=== PATIENT | female | born 1980 | race Caucasian/White ===

== ENCOUNTER 2018-06-24 18:15 | Emergency (ER) | payer SELFPAY ==
--- NOTE | 2018-06-24 19:08 | EDM.PDOC ---
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 No cramping. Blood type is RH +. Per her home preg test she should be about 5 weeks gestation. Has some pain in the area of her L ovary. No hx of ectopic preg. 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: Other (see below) (none) Left Pelvic Pain Score (Numeric/FACES): 2 - Related Data Allergies Allergy/AdvReac Type Severity Reaction Status Date / Time Penicillins Allergy Hives Verified 06/24/18 18:36 Home Meds: Home Meds Vit37/Iron/Folic Acid [Prenata] 1 tab PO DAILY 06/24/18 [History] Past Medical History 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: , 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 RESOURCE 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 History: G-8 P-5 Neurological History: Reports: Migraines - Past Surgical History GI Surgical History: Reports: Appendectomy Social & Family History - Tobacco Use Smoking Status *Q: Never Smoker - Caffeine Use Caffeine Use: Reports: None - Recreational Drug Use Recreational Drug Use: No ED ROS GENERAL - Review of Systems Review Of Systems: See Below Constitutional: Reports: No Symptoms HEENT: Reports: No Symptoms Respiratory: Reports: No Symptoms Cardiovascular: Reports: No Symptoms GI/Abdominal: Reports: No Symptoms : Reports: Other (vaginal bleeding at about 5 weeks gestation.) Skin: Reports: No Symptoms Neurological: Reports: No Symptoms ED EXAM - Physical Exam Exam: See Below Exam Limited By: No Limitations General Appearance: Alert, WD/WN, No Apparent Distress Eye Exam: Bilateral Eye: Normal Inspection Ears: Hearing Grossly Normal Nose: Normal Inspection, No Blood Throat/Mouth: Normal Lips, Normal Voice, No Airway Compromise Head: Atraumatic, Normocephalic Neck: Normal Inspection Respiratory/Chest: No Respiratory Distress, No Accessory Muscle Use Cardiovascular: Regular Rate, Rhythm Neurological: Alert, Oriented, CN II-XII Intact, Normal Cognition, No Motor/ Sensory Deficits Psychiatric: Normal Affect, Normal Mood Skin Exam: Warm, Dry, Intact, Normal Color Course - Vital Signs Last Recorded V/S: Last Vital Signs Temp 36.9 C 06/24/18 18:34 Pulse 76 06/24/18 18:34 Resp 16 06/24/18 18:34 BP 115/80 06/24/18 18:34 Pulse Ox 97 06/24/18 18:34 - Orders/Labs/Meds Orders: Active Orders 24 hr Category Date Time Status OB Transvaginal [US] Stat Exams 06/24/18 20:34 Taken Labs: Laboratory Tests 06/24/18 Range/Units 19:03 HCG, Qual Positive H - Radiology Interpretation Free Text/Narrative:: Pelvic US-no IUP or ectopic seen Departure - Departure Time of Disposition: 21:13 Disposition: Home, Self-Care 01 Condition: Good Clinical Impression: First trimester bleeding - Discharge Information *PRESCRIPTION DRUG MONITORING PROGRAM REVIEWED*: No *COPY OF PRESCRIPTION DRUG MONITORING REPORT IN PATIENT EDILMA: No Referrals: Alexei Winter MD [Primary Care Provider] - Forms: ED Department Discharge Additional Instructions: Acetaminophen as needed. Recheck next week with your primary. Return as needed. - My Orders Last 24 Hours: My Active Orders 06/24/18 20:34 OB Transvaginal [US] Stat - Assessment/Plan Last 24 Hours: My Active Orders 06/24/18 20:34 OB Transvaginal [US] Stat
--- NOTE | 2018-06-24 22:53 | CRLUS ---
INDICATION: Left lower quadrant pain. Positive test. Vaginal bleeding. TECHNIQUE: Ultrasound OB pelvis transvaginal. Real time lockhart scale imaging of the pelvis was performed. COMPARISON: None FINDINGS: No intrauterine identified. Retroverted position of the uterus. No significant decidual reaction. No significant free pelvic fluid. No adnexal mass. Arterial and venous flow to both ovaries intact. Small anechoic right ovarian cyst or dominant follicle, measuring 1.6 cm. The cervix is closed. The myometrium appears normal. The ovaries are of normal size. No significant ascites noted. IMPRESSION: 1. No intrauterine or an adnexal mass identified. No significant free fluid. 2. Recommend close clinical followup and correlation with serial HCG levels. In setting of positive test and no evidence of intrauterine gestation, ectopic cannot be excluded. 3. Small cystic focus in the right ovary with no significant color Doppler flow. This may represent a small corpus luteum cyst without evidence of typical peripheral color Doppler flow. In addition, small dominant right ovarian follicle or cyst included in differential, measuring 1.6 cm. Dictated by Shalom Poole MD @ 06/24/2018 10:51:40 PM Dictated by: Shalom Poole MD @ 06/24/2018 22:51:46 (Electronically Signed)
== END 2018-06-24 21:21 | disposition home or self-care (01) ==
LOC: JP.ED 18:15
DX: O20.9 Hemorrhage in early pregnancy, unspecified (principal); Z3A.01 Less than 8 weeks gestation of pregnancy; Z88.0 Allergy status to penicillin
CPT/HCPCS: 36415; 76817; 84703; 99284; 99284-25

== ENCOUNTER 2018-10-06 16:32 | Emergency (ER) | payer SELFPAY ==
--- NOTE | 2018-10-06 18:09 | EDM.PDOC ---
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 P-6 Neurological History: Reports: Migraines - Infectious Disease History Infectious Disease History: Reports: Chicken Pox - Past Surgical History GI Surgical History: Reports: Appendectomy Social & Family History - Tobacco Use Smoking Status *Q: Never Smoker Second Hand Smoke Exposure: No - Caffeine Use Caffeine Use: Reports: Coffee - Alcohol Use Days Per Week of Alcohol Use: 0 - Recreational Drug Use Recreational Drug Use: No ED ROS GENERAL - Review of Systems Review Of Systems: See Below Constitutional: Reports: No Symptoms Respiratory: Reports: No Symptoms Cardiovascular: Reports: No Symptoms GI/Abdominal: Reports: No Symptoms : Reports: Other (light brown vaginal discharge) Musculoskeletal: Reports: No Symptoms Skin: Reports: No Symptoms Neurological: Reports: No Symptoms Psychiatric: Reports: No Symptoms ED EXAM, GENERAL - Physical Exam Exam: See Below Exam Limited By: No Limitations General Appearance: Alert, WD/WN, No Apparent Distress Head: Atraumatic, Normocephalic Neck: Normal Inspection, Supple, Full Range of Motion Respiratory/Chest: No Respiratory Distress, Lungs Clear, Normal Breath Sounds Cardiovascular: Regular Rate, Rhythm GI/Abdominal: Normal Bowel Sounds, Soft, Non-Tender Extremities: Normal Inspection, Normal Range of Motion Neurological: Alert, Oriented, CN II-XII Intact, Normal Cognition, Normal Gait Psychiatric: Normal Affect, Normal Mood Skin Exam: Warm, Dry, Intact, Normal Color Course - Vital Signs Last Recorded V/S: Last Vital Signs Temp 98.6 F 10/06/18 17:48 Pulse 81 10/06/18 17:48 Resp 20 10/06/18 17:48 BP 96/62 10/06/18 17:48 Pulse Ox 99 10/06/18 17:48 - Orders/Labs/Meds Labs: Laboratory Tests 10/06/18 10/06/18 10/06/18 Range/Units 18:09 18:09 19:26 WBC 8.6 (4.5-11.0) K/uL RBC 3.73 (3.30-5.50) M/uL Hgb 11.5 L (12.0-15.0) g/dL Hct 34.8 L (36.0-48.0) % MCV 93 (80-98) fL MCH 31 (27-31) pg MCHC 33 (32-36) % Plt Count 245 (150-400) K/uL Neut % (Auto) 69 H (36-66) % Lymph % (Auto) 23 L (24-44) % [place] % (Auto) 8 H (2-6) % Eos % (Auto) 0 L (2-4) % Baso % (Auto) 0 (0-1) % HCG, Quant 803193 H (0-6) mIU/mL Urine Color Yellow Urine Appearance Clear Urine pH 6.0 (4.5-8.0) Ur Specific [place] 1.015 (1.008-1.030) Urine Protein Negative (NEGATIVE) mg/dL Urine Glucose (UA) Normal (NEGATIVE) mg/dL Urine Ketones Negative (NEGATIVE) mg/dL Urine Occult Blood Negative (NEGATIVE) Urine Nitrite Negative (NEGATIVE) Urine Bilirubin Negative (NEGATIVE) Urine Urobilinogen Normal (NORMAL) mg/dL Ur Leukocyte Esterase Negative (NEGATIVE) Urine RBC Not seen (0-5) Urine WBC Not seen (0-5) Ur Epithelial Cells Few Amorphous Sediment Not seen Urine Bacteria Few Urine Mucus Rare - Re-Assessments/Exams Free Text/Narrative Re-Assessment/Exam: 10/06/18 19:24 Ultrasound shows 8 weeks 1 day. Heart rate is appropriate; small subchorionic bleed; Departure - Departure Time of Disposition: 19:20 Disposition: Home, Self-Care 01 Condition: Good Clinical Impression: Vaginal bleeding before 22 weeks gestation, First trimester bleeding - Discharge Information *PRESCRIPTION DRUG MONITORING PROGRAM REVIEWED*: Not Applicable *COPY OF PRESCRIPTION DRUG MONITORING REPORT IN PATIENT EDILMA: Not Applicable Instructions: Vaginal Bleeding During , First Trimester Referrals: Alexei Winter MD [Primary Care Provider] - Forms: ED Department Discharge Additional Instructions: stay hydrated no exertional activity until cleared by your OBGYN Call with questions. All looked good on ultrasound. - Problem List & Annotations (1) Vaginal bleeding before 22 weeks gestation SNOMED Code(s): 54481923 Code(s): O20.9 - HEMORRHAGE IN EARLY , UNSPECIFIED Status: Acute Priority: Low
--- NOTE | 2018-10-06 19:45 | CRLUS ---
INDICATION: Vaginal bleeding TECHNIQUE: Ultrasound OB pelvis transvaginal. Real time lockhart scale imaging of the pelvis was performed. COMPARISON: None FINDINGS: Gestational sac: Sonographic imaging demonstrates a single intrauterine gestation with a normal appearance. A small subchorionic hemorrhage is present measuring 10 x 6 mm.The amount of fluid within the sac appears appropriate for gestational age. Fetus: The embryo demonstrates a regular cardiac rate measuring 161 beats per minute. The embryo`s crown rump length measurement of 16 mm corresponds to a gestational age of 8 weeks, 1 day. There are no gross abnormalities noted within the embryo at this early state of development. There is a normal appearing yolk sac. Placenta: The placenta has not yet developed. Pelvis: The visualized cervix is not seen. The visualized myometrium appears normal. The left ovary is unremarkable appearance and demonstrates arterial blood flow. The right ovary is obscured by bowel gas. No significant ascites noted. IMPRESSION: 1. Single viable intrauterine with an estimated gestational age of 8 weeks, 1 day. Follow-up imaging for anatomic survey is recommended. 2. A small subchorionic hemorrhage is present measuring 10 x 6 mm. Dictated by Min Mattson MD @ 10/06/2018 7:43:40 PM Dictated by: Min Mattson MD @ 10/06/2018 19:44:10 (Electronically Signed)
== END 2018-10-06 19:27 | disposition home or self-care (01) ==
LOC: JP.ED 16:32
DX: O20.9 Hemorrhage in early pregnancy, unspecified (principal); Z3A.08 8 weeks gestation of pregnancy; Z88.0 Allergy status to penicillin
CPT/HCPCS: 36415; 76801; 81001; 84702; 85025; 99283; 99284-25

== ENCOUNTER 2018-10-30 19:46 | Emergency (ER) | payer SELFPAY ==
--- NOTE | 2018-10-30 20:52 | EDM.PDOC ---
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 She is 12weeks . She has her first appt at the clinin in the next few days. Onset: Today, Other ( She may have had slight spotting yesterday. 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 Neurological History: Reports: Migraines - Infectious Disease History Infectious Disease History: Reports: Chicken Pox - Past Surgical History GI Surgical History: Reports: Appendectomy Social & Family History - Tobacco Use Smoking Status *Q: Never Smoker - Caffeine Use Caffeine Use: Reports: Coffee - Recreational Drug Use Recreational Drug Use: No ED ROS GENERAL - Review of Systems Review Of Systems: See Below Constitutional: Reports: No Symptoms HEENT: Reports: No Symptoms Respiratory: Reports: No Symptoms Cardiovascular: Reports: No Symptoms Endocrine: Reports: No Symptoms GI/Abdominal: Reports: No Symptoms : Reports: No Symptoms, Other (pt has a history of spotting. ) Musculoskeletal: Reports: No Symptoms Skin: Reports: No Symptoms Neurological: Reports: No Symptoms Psychiatric: Reports: No Symptoms ED EXAM - Physical Exam Exam: See Below Text/Narrative:: pt is 12 weeks . She noted pinkish discharge yesterday and today she was passing clots and she was cramping. This is her 8th . Exam Limited By: No Limitations General Appearance: Alert, Anxious, Moderate Distress Ears: Normal TMs Nose: Normal Inspection Throat/Mouth: Normal Inspection Head: Atraumatic Neck: Normal Inspection Respiratory/Chest: No Respiratory Distress Cardiovascular: Regular Rate, Rhythm GI/Abdominal Exam: Other (no tenderness. ) Rectal Exam: Deferred (Female) Exam: Other (pt had a pelvic exam which did not show bright red bleeding. She has a closed cervix. ) Extremities: Normal Inspection Course - Vital Signs Last Recorded V/S: Last Vital Signs Temp 35.9 C 10/30/18 20:24 Pulse 73 10/30/18 20:24 Resp 16 10/30/18 20:24 BP 123/66 10/30/18 20:24 Pulse Ox 100 10/30/18 20:24 - Orders/Labs/Meds Orders: Active Orders 24 hr Category Date Time Status OB Ltd 1 or More Fetus [US] Stat Exams 10/30/18 20:43 Taken Labs: Laboratory Tests 10/30/18 10/30/18 10/30/18 Range/Units 20:30 20:36 20:36 WBC 7.9 (4.5-11.0) K/uL RBC 3.75 (3.30-5.50) M/uL Hgb 11.7 L (12.0-15.0) g/dL Hct 35.2 L (36.0-48.0) % MCV 94 (80-98) fL MCH 31 (27-31) pg MCHC 33 (32-36) % Plt Count 258 (150-400) K/uL Neut % (Auto) 62 (36-66) % Lymph % (Auto) 30 (24-44) % [place] % (Auto) 8 H (2-6) % Eos % (Auto) 1 L (2-4) % Baso % (Auto) 0 (0-1) % Sodium (140-148) mmol/L Potassium (3.6-5.2) mmol/L Chloride (100-108) mmol/L Carbon Dioxide (21-32) mmol/L Anion Gap (5.0-14.0) mmol/L BUN (7-18) mg/dL Creatinine (0.6-1.0) mg/dL Est Cr Clr Drug Dosing mL/min Estimated GFR (MDRD) (>60) Glucose (74-106) mg/dL Calcium (8.5-10.1) mg/dL Total Bilirubin (0.2-1.0) mg/dL AST (15-37) U/L ALT (12-78) U/L Alkaline Phosphatase (46-116) U/L Total Protein (6.4-8.2) g/dL Albumin (3.4-5.0) g/dL Globulin (2.3-3.5) g/dL Albumin/Globulin Ratio (1.2-2.2) HCG, Quant 7556 H (0-6) mIU/mL Urine Color Yellow (YELLOW) Urine Appearance Clear (CLEAR) Urine pH 6.0 (5.0-8.0) Ur Specific [place] <= 1.005 L (1.008-1.030) Urine Protein Negative (NEGATIVE) mg/dL Urine Glucose (UA) Negative (NEGATIVE) mg/dL Urine Ketones Negative (NEGATIVE) mg/dL Urine Occult Blood Moderate (NEGATIVE) Urine Nitrite Negative (NEGATIVE) Urine Bilirubin Negative (NEGATIVE) Urine Urobilinogen 0.2 (0.2-1.0) EU/dL Ur Leukocyte Esterase Negative (NEGATIVE) Urine RBC 5-10 H (0-5) Urine WBC 0-5 (0-5) Ur Epithelial Cells Rare Amorphous Sediment Not seen Urine Bacteria Not seen Urine Mucus Not seen 10/30/18 Range/Units 20:36 WBC (4.5-11.0) K/uL RBC (3.30-5.50) M/uL Hgb (12.0-15.0) g/dL Hct (36.0-48.0) % MCV (80-98) fL MCH (27-31) pg MCHC (32-36) % Plt Count (150-400) K/uL Neut % (Auto) (36-66) % Lymph % (Auto) (24-44) % [place] % (Auto) (2-6) % Eos % (Auto) (2-4) % Baso % (Auto) (0-1) % Sodium 137 L (140-148) mmol/L Potassium 3.5 L (3.6-5.2) mmol/L Chloride 103 (100-108) mmol/L Carbon Dioxide 26 (21-32) mmol/L Anion Gap 11.5 (5.0-14.0) mmol/L BUN 11 (7-18) mg/dL Creatinine 0.8 (0.6-1.0) mg/dL Est Cr Clr Drug Dosing 69.16 mL/min Estimated GFR (MDRD) > 60 (>60) Glucose 89 (74-106) mg/dL Calcium 8.9 (8.5-10.1) mg/dL Total Bilirubin 0.2 (0.2-1.0) mg/dL AST 13 L (15-37) U/L ALT 17 (12-78) U/L Alkaline Phosphatase 59 (46-116) U/L Total Protein 7.8 (6.4-8.2) g/dL Albumin 3.6 (3.4-5.0) g/dL Globulin 4.2 H (2.3-3.5) g/dL Albumin/Globulin Ratio 0.9 L (1.2-2.2) HCG, Quant (0-6) mIU/mL Urine Color (YELLOW) Urine Appearance (CLEAR) Urine pH (5.0-8.0) Ur Specific [place] (1.008-1.030) Urine Protein (NEGATIVE) mg/dL Urine Glucose (UA) (NEGATIVE) mg/dL Urine Ketones (NEGATIVE) mg/dL Urine Occult Blood (NEGATIVE) Urine Nitrite (NEGATIVE) Urine Bilirubin (NEGATIVE) Urine Urobilinogen (0.2-1.0) EU/dL Ur Leukocyte Esterase (NEGATIVE) Urine RBC (0-5) Urine WBC (0-5) Ur Epithelial Cells Amorphous Sediment Urine Bacteria Urine Mucus - Re-Assessments/Exams Free Text/Narrative Re-Assessment/Exam: 10/30/18 22:05 quantative HCG was 7000 which is very low. There were no heart tones present. Us showed a fetus which had not progressed to 12 weeks . The fetus was about the size of 9 weeks. There was no heart tones present. Departure - Departure Time of Disposition: 22:09 Disposition: Home, Self-Care 01 Condition: Fair Clinical Impression: before 20 weeks with retention of fetus - Discharge Information Referrals: Narayan Croft MD [Primary Care Provider] - Forms: ED Department Discharge Care Plan Goals: rtc if heavy bleeding, watch what is passed. norco 5/325 q6h prn for pain and cramping keep appt with Dr Cummins.-- on tue. - My Orders Last 24 Hours: My Active Orders 10/30/18 20:43 OB Ltd 1 or More Fetus [US] Stat - Assessment/Plan Last 24 Hours: My Active Orders 10/30/18 20:43 OB Ltd 1 or More Fetus [US] Stat
--- NOTE | 2018-10-30 22:26 | CRLUS ---
INDICATION: First trimester bleeding. COMPARISON: None. TECHNIQUE: 2D lockhart-scale imaging of the pelvis was performed. FINDINGS: Sonographic imaging demonstrates a single intrauterine gestation. The gestational sac contains a embryo which lacks cardiac activity. The embryos crown-rump length measurement of 2.3 cm correlates with a 9 week gestation. By clinical dates the patient should be 11 weeks 2 day gestation. There is no evidence of a marginal hemorrhage. The cervix is closed. The myometrium appears normal. The ovaries are of normal size. There are no suspicious fluid collections noted in the cul-de-sac. IMPRESSION: Abnormal sonogram with findings of embryonic demise at 9 weeks. Dictated by Jermaine Cannon MD @ Oct 30 2018 10:23PM Signed by Dr. Jermaine Cannon @ Oct 30 2018 10:24PM
== END 2018-10-30 22:28 | disposition home or self-care (01) ==
LOC: JP.ED 19:46
DX: O02.1 Missed abortion (principal); Z88.0 Allergy status to penicillin; Z3A.12 12 weeks gestation of pregnancy
CPT/HCPCS: 36415; 76815; 80053; 81001; 84702; 85025; 99284-25